=== PATIENT | male | born 1950 ===

== ENCOUNTER 2022-02-28 07:45 | Inpatient (IN) | payer OTHER ==
[2022-03-28] MEDS ORDERED: BREO ELLIPTA 21 EACH IH (08:29)
[2022-03-28] MEDS ORDERED: ZETIA10 MG PO (08:29)
[2022-03-28] MEDS ORDERED: TRILIPIX45 MG PO (08:29)
[2022-03-28] MEDS ORDERED: SINGULAIR10 MG PO (08:30)
[2022-03-28] MEDS ORDERED: TOPROL XL50 M1 PO (08:30)
[2022-03-28] MEDS ORDERED: ECOTRIN81 MG PO (08:30)
[2022-03-28] MEDS ORDERED: NORVASC10 MG PO (08:30)
[2022-03-28] MEDS ORDERED: GLIPIZIDE XL5 MG PO (08:31)
[2022-03-28] MEDS ORDERED: GABAPENTIN800 M1 PO (08:31)
[2022-04-04] MEDS ORDERED: ESOMEPRAZOLE MA40 MG (11:22)
[2022-04-04] MEDS ORDERED: PRAVASTATIN SOD40 MG (11:22)
[2022-04-04] MEDS ORDERED: CILOSTAZOL50 MG (11:22)
[2022-04-04] MEDS ORDERED: VALSARTAN-HCTZ1 EAC3 (11:23)
[2022-04-04] MEDS ORDERED: ELIQUIS2.5 MG PO (16:43)
[2022-04-04] MEDS ORDERED: PERCOCET 5-3251 EACH PO (16:43)
[2022-04-04] MEDS ORDERED: DUI500 PO (16:43)
== END 2022-04-04 22:38 | DRG 470 ==
LOC: SURG 04-02 05:59 → O/R 04-02 05:59 → SURG 04-02 08:15
PROVIDERS: ADMIT Orthopaedic Surgery; ATTEND Orthopaedic Surgery
PROC: 0SRD0J9 Replacement of Left Knee Joint with Synthetic Substitute, Cemented, Open Approach (ICD-10-PCS; principal; 2022-04-02 13:15)
DX: M17.12 Unilateral primary osteoarthritis, left knee (principal); D62 Acute posthemorrhagic anemia; M22.12 Recurrent subluxation of patella, left knee; I10 Essential (primary) hypertension; E11.9 Type 2 diabetes mellitus without complications; Z79.84 Long term (current) use of oral hypoglycemic drugs; Z20.822 Contact with and (suspected) exposure to COVID-19